=== PATIENT | female | born 1985 | race Two or more races ===

== ENCOUNTER 2021-04-30 10:14 | Emergency (ER) | payer OTHER ==
[~2021-04-30] VITALS: Ht 162.6 cm; Wt 81.6 kg
[2021-04-30] MEDS ORDERED: AMOX-CLAV 875-1 EACH PO (14:32)
[2021-04-30] MEDS ORDERED: KETO10TA2 PO (14:32)
== END 2021-04-30 14:34 | disposition home or self-care (01) ==
LOC: ER 10:14
DX: H60.591 Other noninfective acute otitis externa, right ear (principal); H92.01 Otalgia, right ear; Z20.822 Contact with and (suspected) exposure to COVID-19

== ENCOUNTER 2023-12-04 21:24 | Emergency (ER) | payer OTHER ==
[~2023-12-04] VITALS: Ht 165.1 cm; Wt 81.6 kg
[~2023-12-04 21:24] MED LIST: AMOX-CLAV 875-1 EACH PO; KETO10TA2 PO
== END 2023-12-05 00:11 | disposition left against medical advice (07) ==
LOC: ER 21:26
DX: Z53.21 Procedure and treatment not carried out due to patient leaving prior to being seen by health care provider (principal)